=== PATIENT | male | born 1945 | race Caucasian/White ===

== ENCOUNTER 2021-07-25 05:23 | Observation (INO) | payer MEDICARE ==
[2021-07-16 14:15] LABS: BASOPHILS % 0.3 % (0.0-1.0); EOSINOPHILS % 0.4 % (0.0-6.0); HEMATOCRIT 41.3 % (38.2-49.6); HEMOGLOBIN 14.2 g/dL (14.0-18.0); LYMPHOCYTES # (AUTO) 0.9 (1.0-3.2); LYMPHOCYTES % 11.6 % (18.0-39.1); MEAN CORPUSCULAR HEMOGLOBIN 34.7 pg (28-32); MEAN CORPUSCULAR HGB CONC 34.4 g/dL (31-35); MONOCYTES # (AUTO) 0.8 (0.2-0.8); MONOCYTES % 11.1 % (4.4-11.3); NEUTROPHILS # (AUTO) 5.7 (2.1-6.9); NEUTROPHILS % 75.1 % (38.7-80.0); PLATELET COUNT 223 x10e3/uL (140-360); RED BLOOD COUNT 4.09 x10e6/uL (4.3-5.7)
[2021-07-16 14:32] LABS: INR 1.06; PROTHROMBIN TIME 14.6 seconds (11.9-14.5)
[2021-07-16 14:33] LABS: PARTIAL THROMBOPLASTIN TIME 24.4 seconds (23.8-35.5)
[2021-07-16 14:38] LABS: ANION GAP 15.1 mmol/L (8-16); CALCIUM 9.8 mg/dL (8.4-10.2); CREATININE, SERUM 1.2 mg/dL (0.72-1.25); POTASSIUM 4.1 mmol/L (3.5-5.1)
[~2021-07-25] VITALS: Ht 170.2 cm; Wt 82.1 kg
[~2021-07-25 05:23] MED LIST: DIOVAN HCT 3201 EACH PO; LIPITOR10 MG PO; TRICOR48 MG PO
[2021-07-25] MEDS ORDERED: SODIUM CHLORIDE 0.9% 50ML 100 ML ONE (06:33)
[2021-07-25] MEDS ORDERED: THROMBIN FOR SOLN 5,000 UNIT VIAL ONE (06:46)
[2021-07-25] MEDS ORDERED: LIDOCAINE 1% W/EPINEPHRINE 20 ML VIAL ONE (06:46)
[2021-07-25] MEDS ORDERED: Vancomycin IV 1 GM VIAL ONE (06:46)
[2021-07-25] MEDS ORDERED: HYDROCODON-ACE1 EA12 PO (08:44)
[2021-07-25] MEDS ORDERED: Morphine 4mg Syringe 4 MG/ML INJ IM PRN (08:45)
[2021-07-25] MEDS ORDERED: ACETAMINOPHEN 325 MG TAB PO PRN (08:45)
[2021-07-25] MEDS ORDERED: HYDROMORPHONE 2MG/ML 2 MG/ML ML IV PRN (08:45)
[2021-07-25] MEDS ORDERED: CARISOPRODOL 350 MG TAB PO PRN (08:45)
[2021-07-25] MEDS ORDERED: OXYCODONE/ACETAMINOPHEN 5-325 1 EACH TABLET PO PRN (08:45)
[2021-07-25] MEDS ORDERED: PROMETHAZINE HCL (IM) 25 MG/ML VIAL IM PRN (08:45)
[2021-07-25] MEDS ORDERED: ONDANSETRON HCL INJ 2MG/ML 2ML 2 MG/ML VIAL IV PRN (08:45)
[2021-07-25] MEDS ORDERED: ZOLPIDEM TARTRATE 5 MG TAB PO PRN (08:45)
[2021-07-25] MEDS ORDERED: MAGNESIUM/ALUMINUM/SIMETHICONE 30 ML UDC PO PRN (08:45)
[2021-07-25 09:55] VITALS: BP 132/83
[2021-07-25] MEDS ORDERED: LACTATED RINGER'S 1,000 ML IV SCH (11:00)
[2021-07-25 11:12] VITALS: BP 132/83
[2021-07-25] MEDS: FENOFIBRATE 48 MG TAB PO SCH (11:51)
[2021-07-25 12:00] VITALS: BP 132/83
[2021-07-25] MEDS ORDERED: ACETAMINOPHEN 1000 MG/100 ML IV ONE (12:19)
[2021-07-25] MEDS ORDERED: ROCURONIUM BROMIDE 10 MG/ML 5ML VIAL IV ONE (12:19)
[2021-07-25] MEDS ORDERED: POVIDONE IODINE 0.05% 0.05 % ML PO ONE (12:19)
[2021-07-25] MEDS ORDERED: SEVOFLURANE INHAL SOLN 250 ML PEN BTL ONE (12:19)
[2021-07-25] MEDS ORDERED: PROPOFOL IV EMULSION 10 MG/ML 20 ML VIAL ONE (12:19)
[2021-07-25] MEDS ORDERED: PHENYLEPHRINE HCL 1% 10 MG/ML VIAL ONE (12:19)
[2021-07-25] MEDS ORDERED: DEXAMETHASONE SOD PHOS INJ 4 MG/ML SDV ONE (12:19)
[2021-07-25] MEDS ORDERED: LIDOCAINE HCL 2% LOCAL INJ 5 ML SDV VIAL INJ ONE (12:19)
[2021-07-25] MEDS ORDERED: EPHEDRINE SULFATE INJ 50 MG/ML VIAL ONE (12:19)
[2021-07-25] MEDS ORDERED: ONDANSETRON HCL INJ 2MG/ML 2ML 2 MG/ML VIAL ONE (12:19)
[2021-07-25] MEDS ORDERED: FENTANYL CITRATE/PF 100MCG/2 ML INJ ONE (12:48)
[2021-07-25] MEDS ORDERED: MIDAZOLAM HCL 2 MG/2 ML VIAL ONE (12:48)
[2021-07-25] MEDS: Cefazolin 1 GM in SODIUM CHLORIDE 0.9% 50ML 50 ML IV SCH ×2 (14:50→23:30)
[2021-07-25 16:00] VITALS: BP 138/89
[2021-07-25 20:00] VITALS: BP 136/84
[2021-07-25] MEDS ORDERED: ATORVASTATIN 10 MG TAB PO SCH (21:00)
[2021-07-25 21:36] VITALS: BP 136/84
[2021-07-26] VITALS: BP 149/89
[2021-07-26 04:00] VITALS: BP 177/88
[2021-07-26 07:52] VITALS: BP 104/79
[2021-07-26] MEDS: Cefazolin 1 GM in SODIUM CHLORIDE 0.9% 50ML 50 ML IV SCH ×2 (08:24→08:30)
[2021-07-26] MEDS: FENOFIBRATE 48 MG TAB PO SCH (08:25)
[2021-07-26 08:50] VITALS: BP 104/79
[2021-07-26] MEDS ORDERED: VALSARTAN 160 MG TAB PO SCH (09:00)
== END 2021-07-26 10:12 | disposition home or self-care (01) ==
LOC: OR 05:23 → PACU V 08:41 → MED/SURG 10:09
PROVIDERS: ADMIT Neurological Surgery; ATTEND Neurological Surgery
DX: M48.062 Spinal stenosis, lumbar region with neurogenic claudication (principal); I10 Essential (primary) hypertension; E78.00 Pure hypercholesterolemia, unspecified; Z01.810 Encounter for preprocedural cardiovascular examination; Z01.812 Encounter for preprocedural laboratory examination; Z01.818 Encounter for other preprocedural examination; Z85.46 Personal history of malignant neoplasm of prostate
CPT/HCPCS: 36415; 63047; 63048; 71046; 72020; 80048; 85025; 85610; 85730; 86850 ×2; 86900 ×2; 88304; 88311; 93005; G0378 ×2; J0131; J0690 ×2; J1100; J2001; J2250; J2370; J2405; J2704; J3010; J3370; J7121; U0002